=== PATIENT | male | born 1950 | race Caucasian/White ===

== ENCOUNTER 2019-12-15 09:02 | Outpatient (CLI) | payer MEDICARE, OTHER, SELFPAY ==
--- NOTE | 2019-12-15 | US_ITS ---
WS: [id number] Gallbladder ultrasound, 12/15/2019 Clinical Data: ELEVATED ALKALINE PHOSPHATASE LEVEL Comparison: None. Findings: The gallbladder shows no sludge or stone. The wall measures 1.7 mm with no pericholecystic fluid. The common bile duct is 3.2 mm and there are no intrahepatic ductal abnormalities. Liver shows no cysts, masses or dilated intrahepatic ducts. The liver is dense and measures 16.84 x 1 5.55 cm in AP and superior inferior dimension. The pancreas is not obscured by overlying bowel gas and no cyst, pseudocyst, or evidence of pancreati tis is noted. Right kidney measures 5.75 x 5.97 x 10.7 cm and no cyst, masses or hydronephrosis can be seen. The aorta and inferior vena cava show no vascular abnormalities. US/US liver [id number] Impression: 1. Negative gallbladder. 2. Enlarged dense liver.
== END 2019-12-15 09:03 | disposition home or self-care (01) ==
LOC: RADOUTREAD 12:21
PROVIDERS: Family Provider Nurse Practitioner Family; PCP Nurse Practitioner Family; Visit Provider Internal Medicine
DX: R74.8 Abnormal levels of other serum enzymes (principal); R16.0 Hepatomegaly, not elsewhere classified
CPT/HCPCS: 76705

== ENCOUNTER 2019-12-20 10:12 | Outpatient (CLI) | payer MEDICARE, OTHER, SELFPAY ==
--- NOTE | 2019-12-20 | XR_ITS ---
WS: [id number] LUMBAR SPINE TECHNIQUE: 5 views of the lumbar spine CLINICAL INFORMATION: LUMBAR PAIN COMPARISON: December 28, 2015 FINDINGS: Five [id number]-[id number] lumbar vertebral bodies. Prior postoperative changes pedicle screw fixation L3-S 1 with interconnecting rods. Interbody fusion L3-4 L4-L5 and L5-S1. Hardware appears stable. Osteopen ia. No instability on flexion extension. XR/XR lumbar spine min 4V [id number] IMPRESSION: 1. No instability on flexion-extension. 2. Stable appearing pedicle screw fixation with interbody fusion L3-S1.
== END 2019-12-20 10:13 | disposition home or self-care (01) ==
LOC: RADOUTREAD 13:40
PROVIDERS: Family Provider Nurse Practitioner Family; PCP Internal Medicine; Visit Provider Internal Medicine
DX: Z76.89 Persons encountering health services in other specified circumstances (principal)

== ENCOUNTER 2020-01-12 09:28 | Outpatient (CLI) | payer MEDICARE, OTHER, SELFPAY ==
--- NOTE | 2020-01-12 09:34 | NM_ITS ---
WS: [id number] NUCLEAR MEDICINE HIDA SCAN CLINICAL INFORMATION: RUQ ABDOMINAL PAIN TECHNIQUE: Following intravenous administration of 8.0 mCi of technetium 99m mebrofenin, images of th e abdomen were obtained over the course of 60 minutes. Next, gallbladder ejection fraction was determ ined by obtaining preprandial and one-hour postprandial images of the gallbladder following oral tk stion of Ensure. COMPARISON: None. FINDINGS: Normal hepatic uptake at 5 minutes. Normal hepatic excretion. Gallbladder is visualized by 10 to 15 m inutes. No evidence of acute cholecystitis. Common bile duct and small bowel are normally visualized. No evidence of choledocholithiasis. Gallbladder ejection fraction 71% within normal limits. No evidence of chronic cholecystitis. NM/NM hepatobiliary w phar* [id number] IMPRESSION: 1. No evidence of acute or chronic cholecystitis. 2. Gallbladder ejection fraction 71% within normal limits
== END 2020-01-12 09:29 | disposition home or self-care (01) ==
LOC: RAD 09:30
PROVIDERS: Family Provider Internal Medicine; PCP Internal Medicine; Visit Provider Internal Medicine
DX: R10.11 Right upper quadrant pain (principal)
CPT/HCPCS: 78227; A9537

== ENCOUNTER → 2022-05-22 09:56 | Outpatient (BNVA) | payer MEDICARE, OTHER, SELFPAY | PROVIDERS: Family Provider Internal Medicine; Visit Provider Family Medicine Adult Medicine | DX: J30.9 Allergic rhinitis, unspecified (principal); Z86.79 Personal history of other diseases of the circulatory system; Z13.6 Encounter for screening for cardiovascular disorders | CPT/HCPCS: 80053; 85025 ==

== ENCOUNTER 2022-10-02 12:29 | Outpatient (CLI) | payer MEDICARE, OTHER, SELFPAY ==
[2022-10-02 12:51] LABS: Basophils % 0.7 %; Eosinophils # 0.1 10^3/uL (0.0-0.8); Eosinophils % 1.3 %; Hematocrit 44.3 % (42.0-52.0); Hemoglobin 14.6 g/dL (11.7-16.6); Lymphocytes # 1.5 10^3/uL (0.8-4.8); Lymphocytes % 24.5 %; Mean Corpuscular Hemoglobin 31.9 pg (28.0-34.0); Mean Corpuscular Volume 96.9 fl (80-94); Mean Platelet Volume 11.3 fL (7.4-10.4); Monocytes # 0.7 10^3/uL (0.2-0.9); Monocytes % 11.9 %; Neutrophils # 3.69 10^3/uL (1.8-7.7); Neutrophils % 61.3 %; Nucleated Red Blood Cells % 0 %; Platelet Count 166 10^3/cmm (130-400); Red Blood Count 4.57 10^6/uL (4.1-5.3); Red Cell Distribution Width 14.1 % (12.1-15.1)
[2022-10-02 13:19] LABS: Carcinoembryonic Antigen 1.6 ng/mL (0.0-4.7); Prostate Specific Antigen Scr 0.38 ng/mL (0-4); Thyroid Stimulating Hormone 19.39 uIU/mL (0.27-4.20)
[2022-10-02 13:33] LABS: Alanine Aminotransferase 51 U/L (0-41); Albumin Level 3.8 g/dL (3.5-5.2); Alkaline Phosphatase 221 U/L (40-130); Anion Gap 13.1 (5-19); Aspartate Amino Transferase 42 U/L (0-40); Blood Urea Nitrogen 16 mg/dL (8-23); Calcium 8.8 mg/dL (8.5-10.5); Carbon Dioxide 24 mmol/L (22-29); Chloride 101 mmol/L (98-107); Globulin 4.4 g/dL (1.3-4.6); Glucose 110 mg/dL (65-115); Osmolality Calculated 280 mOsm/kg (285-295); Potassium 4.1 mmol/L (3.5-5.1); Sodium 134 mmol/L (136-145); Total Bilirubin 0.5 mg/dL (0.15-1.2); Total Protein 8.2 g/dL (6.6-8.7)
== END 2022-10-02 12:30 | disposition home or self-care (01) ==
PROVIDERS: PCP Family Medicine Adult Medicine; Visit Provider Family Medicine Adult Medicine
DX: Z12.5 Encounter for screening for malignant neoplasm of prostate (principal); R53.83 Other fatigue; Z86.79 Personal history of other diseases of the circulatory system; G89.29 Other chronic pain; R10.10 Upper abdominal pain, unspecified; R10.11 Right upper quadrant pain; R10.12 Left upper quadrant pain
CPT/HCPCS: 36415; 80053; 82378; 84443; 85025; G0103

== ENCOUNTER 2022-10-23 13:46 | Outpatient (CLI) | payer MEDICARE, OTHER, SELFPAY ==
[2022-10-23] MEDS: iohexol 350 mg/mL 500 mL Btl (per mL) PO (14:35)
[2022-10-23] MEDS: iohexol 350 mg/mL 500 mL Btl (per mL) IV (14:36)
--- NOTE | 2022-10-23 15:30 | CTR_ITS ---
PROCEDURE INFORMATION: Exam: CT Chest Without and With Contrast; Diagnostic Exam date and time: 10/23/2022 3:18 PM Age: 72 years old Clinical indication: Abdominal pain; Other: Generalized abodmen pain; Prior surgery; Surgery type: Lumbar; Additional info: Abdominal pain 3 weeks TECHNIQUE: Imaging protocol: Diagnostic computed tomography of the chest without and with contrast. Radiation optimization: All CT scans at this facility use at least one of these dose optimization techniques: automated exposure control; mA and/or kV adjustment per patient size (includes targeted exams where dose is matched to clinical indication); or iterative reconstruction. Contrast material: OMNI 350; Contrast volume: 95 ml; Contrast route: INTRAVENOUS (IV); COMPARISON: CR XR chest 2V* [id number] 12/17/2015 10:14 PM RADIATION DOSE METRICS: Total DLP (mGy-cm): 3376.97 FINDINGS: Lungs: Minimal focal pleural thickening anteriorly left lower lung zone likely longstanding. Pleural surfaces are otherwise unremarkable. Minor atelectatic changes left lingula otherwise lung barr are aerated and clear. Pleural spaces: See Lungs finding. Heart: Heart is not enlarged. No significant coronary artery calcifications detected. No significant pericardial effusion. Mediastinal space: Small amount of oral contrast in the mid esophagus suggesting gastroesophageal reflux. Lymph nodes: Scattered small mediastinal lymph nodes likely benign by size criteria. Superimposed granulomatous calcifications within the mediastinum, longstanding. Mildly enlarged pericardial lymph nodes anterolateral to the heart border measuring up 1.5 cm, nonspecific. Vasculature: Unremarkable. No aortic aneurysm. Bones/joints: Unremarkable. No acute fracture. Soft tissues: Unremarkable. PROCEDURE INFORMATION: Exam: CT Abdomen And Pelvis Without And With Contrast Exam date and time: 10/23/2022 3:18 PM Age: 72 years old Clinical indication: Abdominal pain; Other: Generalized abodmen pain; Prior surgery; Surgery type: Lumbar; Additional info: Abdominal pain 3 weeks TECHNIQUE: Imaging protocol: Computed tomography of the abdomen and pelvis without and with contrast. Radiation optimization: All CT scans at this facility use at least one of these dose optimization techniques: automated exposure control; mA and/or kV adjustment per patient size (includes targeted exams where dose is matched to clinical indication); or iterative reconstruction. Contrast material: OMNI 350; Contrast volume: 95 ml; Contrast route: INTRAVENOUS (IV); COMPARISON: US liver [id number] 05/05/2022 10:38 AM RADIATION DOSE METRICS: Total DLP (mGy-cm): 3376.97 FINDINGS: Lungs: Lung bases are clear. Liver: Liver contour suggestive of mild cirrhosis. Gallbladder and bile ducts: Normal. No calcified stones. No ductal dilation. Pancreas: Unremarkable. Main pancreatic duct is not significantly dilated. Spleen: Spleen is moderately enlarged measuring 15 x 14 cm. Adrenal glands: Normal. No mass. Kidneys and ureters: Normal. No hydronephrosis. Stomach and bowel: There are 2 segmental areas of mild colonic wall thickening and some engorgement of adjacent pericolonic vasculature with preserved pericolonic fat planes involving portion of the right colon and distal descending colon that may be secondary to mild segmental colitis. There are multiple diverticula more distally the sigmoid colon without evidence of acute diverticulitis. Appendix: No evidence of appendicitis. Intraperitoneal space: Unremarkable. No free air. No significant fluid collection. Vasculature: Unremarkable. No abdominal aortic aneurysm. Lymph nodes: Borderline enlarged upper abdominal lymph nodes adjacent to the celiac axis, nonspecific. Urinary bladder: Unremarkable as visualized. Reproductive: Unremarkable as visualized. Bones/joints: Patient has undergone recent spinal instrumentation and fusion L3 through S1 stabilized by posterolateral spinal instrumentation. Hardware is intact. Alignment is maintained. Remaining osseous structures are unremarkable. Soft tissues: Unremarkable. CT/CT chest abd pel wo/w con IMPRESSION: 1. Mildly enlarged pericardial lymph nodes, nonspecific. Please refer to discussion of CT abdomen and pelvis. 2. Findings suggestive of reflux. IMPRESSION: 1. Recent spinal instrumentation. No evidence of hardware failure or complications. 2. Findings suggestive of mild segmental colitis which should be correlated clinically. 3. Sigmoid diverticulosis. No evidence of acute diverticulitis. 4. Liver contour suggestive of mild cirrhosis. 5. Splenomegaly and mild upper abdominal lymphadenopathy which may be due to cirrhosis. However findings are nonspecific and follow-up CT exam of the chest abdomen pelvis in 6 months recommended to document stability.
== END 2022-10-23 13:47 | disposition home or self-care (01) ==
LOC: RAD 13:48
PROVIDERS: PCP Family Medicine Adult Medicine; Visit Provider Family Medicine Adult Medicine
DX: R53.83 Other fatigue (principal); R10.10 Upper abdominal pain, unspecified; G89.29 Other chronic pain; M54.9 Dorsalgia, unspecified
CPT/HCPCS: 71260; 74178; Q9967

== ENCOUNTER → 2022-10-27 10:13 | Outpatient (BNVA) | payer MEDICARE, OTHER, SELFPAY | PROVIDERS: PCP Family Medicine Adult Medicine; Visit Provider Surgery | DX: R10.13 Epigastric pain (principal); Z86.010 Personal history of colon polyps | CPT/HCPCS: 99203 ==

== ENCOUNTER 2022-11-19 07:44 | Day surgery (SDC) | payer MEDICARE, OTHER, SELFPAY ==
[2022-11-18 08:28] VITALS: BMI 29.8
[2022-11-19 08:02] VITALS: BP 151/88; PULSE 67; RESP 18; TEMP 36.2; O2SAT 97
[2022-11-19] MEDS: sodium chloride 0.9% 1,000 ML 30 ML IV (08:08)
--- NOTE | 2022-11-19 09:04 | ANES.PREANE2 ---
Pre-Anesthetic Assessment Height/Weight: Height 1.83 m Weight 99.79 kg Temp Pulse Resp BP Pulse Ox O2 Del Method 97.2 F L 67 18 151/88 97 11/19/22 08:02 11/19/22 08:02 11/19/22 08:02 11/19/22 08:02 11/19/22 08:02 11/19/22 08:02 Operation Date: 11/19/22 09:30 Proposed Procedures p 55875 EGD 80163 Colon R10.13,Z86.010(Not Applicable) - DO walker Jennings Colonoscopy(Not Applicable) - Frank Sanchez DO Familial anesthetic complications: None Was Beta Gracie taken within 24 hours: N/A Was Clonidine taken within 24 hours: N/A Last intake: Intake Last Liquid Date 11/18/22 Last Liquid Time 22:00 Last Solid Date 11/17/22 Last Solid Time 18:00 Social No alcohol and No tobacco Exam alert, oriented x 3, clear to auscultation bilaterally and regular rate & rhythm Airway Mallampati: Class II Dentition: false CV/HEM Hx of HTN, patient denies current HTN GI Gastroesophageal Reflux Disease Metabolic Thyroid Disease Anesthetic Plan ASA status: 2 Anesthesia: MAC Risk of > 500 ml blood loss (7ml/kg in children): No Medications/Allergies Home Medications Medication Instructions Recorded Confirmed Last Taken Type fluticasone propionate 50 1 spray intranasal BID 05/22/22 11/19/22 11/17/22 History mcg/actuation nasal spray,suspension dicyclomine 20 mg tablet 20 mg PO QID PRN abdominal 10/02/22 11/19/22 11/17/22 Rx discomfort #60 tabs levothyroxine 100 mcg tablet 100 mcg PO DAILY low thyroid #30 10/02/22 11/19/22 11/17/22 Rx tabs ondansetron HCl 4 mg tablet 4 mg PO Q8H PRN nausea and 10/02/22 11/19/22 11/17/22 Rx vomiting #20 tabs pantoprazole 40 mg tablet,delayed 40 mg PO DAILY GERD #90 tabs 10/02/22 11/19/22 11/17/22 Rx release Allergies Allergy/AdvReac Type Severity Reaction Status Date / Time No Known Allergies Allergy Verified 11/19/22 08:01 Current Medications Generic Name Dose Route Start Last Admin Trade Name Freq PRN Reason Stop Dose Admin Sodium Chloride 1,000 mls @ 30 mls/hr 11/19/22 08:00 11/19/22 08:08 Sodium Chloride 0.9% IV 11/20/22 07:59 30 mls/hr .Q24H EDWIN Administration PFSH Anesthesia Medical History (Updated 10/27/22 @ 11:08 by Frank Sanchez DO) Abnormal colonoscopy [id number] colonoscopy abnormal and he was repeat in 5 years but has yet to have a follow-up Adult onset hypothyroidism Allergic rhinitis due to allergen Chronic upper abdominal pain Fatigue GERD (gastroesophageal reflux disease) History of colon polyps Hx of hypertensive heart disease Influenza vaccine needed Left-sided back pain Prostate cancer screening Surgical History History of ear surgery History of right knee joint replacement Social History Smoking and tobacco status: never smoked Alcohol intake: never Desire information about alcohol rehabilitation?: No Counseling given: No Desire information about substance/drug rehabilitation?: No Counseling given: No Adopted: No Caregiver/support person: No Lives independently: Yes Household members: spouse and children Marital status: History of recent travel: No Current gender identity: Male Special cathi needs: No Data Anesthesia Cardiac Studies: No Data to Display
--- NOTE | 2022-11-19 09:43 | W.PM.OPSUD ---
Surgery/Procedure H&P Update DATE OF PROCEDURE: November 19, 2022 DATE H&P PERFORMED: 10/27/22 PLANNED PROCEDURE: Operation Date: 11/19/22 09:30 Proposed Procedures p 25551 EGD 44993 Colon R10.13,Z86.010(Not Applicable) - DO walker Jennings Colonoscopy(Not Applicable) - Frank Sanchez DO
[2022-11-19 10:09] VITALS: BP 119/71; PULSE 63; RESP 12; TEMP 36.1; O2SAT 94
--- NOTE | 2022-11-19 10:14 | ANE.PACU2 ---
Inpatient post-anesthesia follow up: Airway intact: Yes Vital signs: Temperature 97 F Pulse Rate 63 Respiratory Rate 12 Blood Pressure 119/71 Pulse Oximetry 94 Oxygen Delivery Me thod Room Air Oxygen Flow Rate Fraction of Inspir ed Oxygen Hydration adequate: Yes Nausea and vomiting: No Pain level: 0 Mental status: Baseline
[2022-11-19 10:18] VITALS: BP 116/64; PULSE 63; RESP 12; O2SAT 94
[2022-11-19 10:30] VITALS: BP 147/98; PULSE 64; RESP 14; O2SAT 98
[2022-11-19 10:41] VITALS: BP 146/89; PULSE 61; RESP 16; O2SAT 98
== END 2022-11-19 11:01 | disposition home or self-care (01) ==
PROVIDERS: PCP Family Medicine Adult Medicine; Visit Provider Surgery
PROC: 0DJD8ZZ Inspection of Lower Intestinal Tract, Via Natural or Artificial Opening Endoscopic (ICD-10-PCS; CPT 45378; 2022-11-19 09:30)
PROC: 0DJ08ZZ Inspection of Upper Intestinal Tract, Via Natural or Artificial Opening Endoscopic (ICD-10-PCS; CPT 43235; 2022-11-19 09:30)
DX: Z12.11 Encounter for screening for malignant neoplasm of colon (principal); Z86.010 Personal history of colon polyps; R13.10 Dysphagia, unspecified; K57.30 Diverticulosis of large intestine without perforation or abscess without bleeding; K64.8 Other hemorrhoids; D12.2 Benign neoplasm of ascending colon; K29.50 Unspecified chronic gastritis without bleeding; B96.81 Helicobacter pylori [H. pylori] as the cause of diseases classified elsewhere; E03.9 Hypothyroidism, unspecified; K21.9 Gastro-esophageal reflux disease without esophagitis; I10 Essential (primary) hypertension
CPT/HCPCS: 43239; 45385; 88305; 88342; J2704; J7030

== ENCOUNTER → 2022-12-03 14:48 | Outpatient (BNVA) | payer MEDICARE, OTHER, SELFPAY | PROVIDERS: PCP Family Medicine Adult Medicine; Visit Provider Surgery | DX: Z09 Encounter for follow-up examination after completed treatment for conditions other than malignant neoplasm (principal) | CPT/HCPCS: 99212 ==

== ENCOUNTER → 2022-12-24 12:18 | Outpatient (BNVA) | payer MEDICARE, OTHER, SELFPAY | PROVIDERS: PCP Family Medicine Adult Medicine; Visit Provider Family Medicine Adult Medicine | DX: K74.60 Unspecified cirrhosis of liver (principal); E03.8 Other specified hypothyroidism | CPT/HCPCS: 80053; 84443 ==

== ENCOUNTER → 2023-02-24 10:43 | Outpatient (BNVA) | payer MEDICARE, OTHER, SELFPAY | PROVIDERS: PCP Family Medicine Adult Medicine; Visit Provider Family Medicine Adult Medicine | DX: E03.8 Other specified hypothyroidism (principal) | CPT/HCPCS: 84443 ==

== ENCOUNTER → 2023-05-26 11:06 | Outpatient (BNVA) | payer MEDICARE, OTHER, SELFPAY | PROVIDERS: PCP Family Medicine Adult Medicine; Visit Provider Family Medicine Adult Medicine | DX: E03.8 Other specified hypothyroidism (principal); R53.83 Other fatigue; Z86.79 Personal history of other diseases of the circulatory system | CPT/HCPCS: 80053; 82746; 84443; 85025 ==

== ENCOUNTER → 2023-06-17 14:03 | Outpatient (BNVA) | payer MEDICARE, OTHER, SELFPAY | PROVIDERS: PCP Family Medicine Adult Medicine; Visit Provider Internal Medicine Cardiovascular Disease | DX: K21.9 Gastro-esophageal reflux disease without esophagitis (principal); R06.02 Shortness of breath; R06.09 Other forms of dyspnea; R10.13 Epigastric pain; E03.8 Other specified hypothyroidism; R63.4 Abnormal weight loss; Z68.28 Body mass index [BMI] 28.0-28.9, adult | CPT/HCPCS: 99204 ==

== ENCOUNTER 2023-06-22 10:23 | Outpatient (CLI) | payer MEDICARE, OTHER, SELFPAY ==
--- NOTE | 2023-06-22 10:41 | CT_ITS ---
WS: [id number] CT CHEST, ABDOMEN AND PELVIS NONCONTRAST. HISTORY: Recommended follow-up CT in 6 months from 10/2022 TECHNIQUE: Contiguous 5 mm axial imaging performed through the chest, abdomen and pelvis without IV c ontrast, oral contrast has been provided. Coronal and sagittal reformats chest. Coronal and sagittal reformats through the abdomen and pelvis. All CT scans at [facility] use at least one of thes e dose optimization techniques: automated exposure control; mA and/or kV adjustment per patient size (includes targeted exams where dose is matched to clinical indication); or iterative reconstruction. CONTRAST: None DLP: 1010.29 mGy.cm COMPARISON: 10/23/[address]: Linear 9 mm nodule at the right apex similar to 10/23/2022. New since 2012. Micronodule at the lingula. No additional masses or nodules. No pneumonia. Heart is mildly enlarged. No pericardial or pleural effusions. No adenopathy in the chest. Mild atherosclerosis aorta. Small amount of contras t in the esophagus from reflux disease. Small hiatal hernia. Abdomen CT: Contour of the liver consistent with cirrhosis. Lobulated liver contour. Without IV contr ast cannot exclude masses. Negative gallbladder. Negative unenhanced pancreas. Spleen is enlarged wit h loss of the normal central concavity. Spleen measures over a length of 13.0 cm. Similar appearance as compared to the prior examination. No adrenal mass. Mild bilateral perinephric stranding with no o bstruction. Mild atherosclerosis aorta with no aneurysm. There is mild diffuse wall thickening of the stomach. The stomach is distended with contrast but the mucosa measures 13 mm. This is a new finding. No small bowel obstruction. No colon obstruction. Moder ate diverticular burden beginning in the descending colon through the sigmoid. No acute diverticuliti s. Small lymph node right pericardiac fat. There are very small shotty lymph nodes near the GE junction through the lesser curvature of the stomach. Small retroperitoneal lymph nodes. Lymph nodes are all l ess than a centimeter although numerous. Some of these lymph nodes do appear to have slightly decreas ed in size. Pelvic CT: No free fluid or adenopathy within the pelvis. Mildly distended urinary bladder. Prior posterior lumbar fusion extending from L3-S1. IMPRESSION: 1. Right apical 9 mm linear nodule similar to 10/23/2022 but new since 2012. Recommend chest CT follo w-up in 6 months. 2. Cirrhotic liver with changes of portal venous hypertension. 3. Enlarged spleen is probably on the basis of portal venous hypertension. 4. Shotty but subcentimeter abdominal lymph nodes. May be on the basis of cirrhosis. No enlarging lym phadenopathy. 5. Moderate diverticulosis in the sigmoid colon without acute diverticulitis. 6. No ascites.
[2023-06-22] MEDS: iohexol 350 mg/mL 500 mL Btl (per mL) PO (11:31)
[2023-06-22 11:44] LABS: Anion Gap 12.6 (5-19); Blood Urea Nitrogen 16 mg/dL (8-23); Calcium 8.5 mg/dL (8.5-10.5); Carbon Dioxide 25 mmol/L (22-29); Chloride 104 mmol/L (98-107); Glucose 109 mg/dL (65-115); NT Pro B Type Natriuretic Pept 358 pg/mL (0-125); Osmolality Calculated 286 mOsm/kg (285-295); Potassium 4.6 mmol/L (3.5-5.1); Sodium 137 mmol/L (136-145)
--- NOTE | 2023-06-22 12:00 | USCV_ITS ---
Gabe Jimenez Age: 72 Gender: M : 1950 Exam Date: 06/22/2023 11:32 Ordering Phys: Mei Melendez MD ([email or web address]) Technologist: JOCELINE [place] [facility] [place]: SHORTNESS OF BREATH BP: 136 / 80 HR: 71 Rhythm: Sinus Technical Quality: Adequate MEASUREMENTS (Male / Female) Normal Values 2D ECHO LVOT Diameter 2.0 cm LV Ejection Fraction MOD 2C 58.0 % LV Ejection Fraction 2C AL 59.1 % LA Diameter 3.0 cm LA Width 3.3 cm LA Height 4.5 cm RA Width 3.4 cm RA Height 5.0 cm Aorta at Sinotubular Diameter 2.3 cm IVC Diameter 1.7 cm M-MODE Aortic Annulus Diameter 3.4 cm LA Ao Ratio MM 0.9 MV E Point Septal Separation 0.6 cm DOPPLER AV Peak Velocity 149.7 cm/s LVOT Peak Velocity 108.0 cm/s AV Area Cont Eq vti 2.1 cm squared AV Area Cont Eq pk 2.2 cm squared MV Peak Velocity 103.0 cm/s MV Area PHT 3.9 cm squared Mitral E to A Ratio 1.5 MV E' Velocity 60.0 cm/s Mitral E to MV E' Ratio 9.8 Mitral E to LV E' Lateral Ratio 9.3 Mitral E to LV E' Septal Ratio 10.4 TR Peak Velocity 290.9 cm/s TR Peak Gradient 33.8 mmHg TR Mean Velocity 217.1 cm/s TR Mean Gradient 20.4 mmHg TR Velocity Time Integral 97.7 cm TV Peak E Velocity 43.0 cm/s Right Atrial Pressure 3.0 mmHg Pulmonary Artery Systolic Pressu 36.8 mmHg PV Peak Velocity 90.0 cm/s RV Acceleration Time 0.1 s RV Ejection Time 0.3 s RV AcT/ET 0.4 FINDINGS Left Ventricle Normal left ventricular size and systolic function, EF 63 %. No regional wall motion abnormalities. Right Ventricle The right ventricle is normal in size and function. Right Atrium The right atrium is normal in size. Left Atrium Mildly increased left atrial size. Mitral Valve Mild mitral annular calcification. Mild mitral valve regurgitation. Aortic Valve Thickened aortic valve. Mild aortic valve regurgitation. Tricuspid Valve Pyng-fi-ihfkymnq tricuspid valve regurgitation. Estimated pulmonary artery peak systolic pressure is 37 mmHg Pulmonic Valve Structurally normal pulmonic valve. Pericardium No pericardial effusion. Aorta Normal aortic annulus size. IVC Normal inferior vena cava. CONCLUSIONS Normal left ventricular size and systolic function, EF 63 %. No regional wall motion abnormalities. Mildly increased left atrial size. Mild mitral annular calcification. Mild mitral valve regurgitation. Thickened aortic valve. Mild aortic valve regurgitation. Qrkv-yv-emeomoee tricuspid valve regurgitation. Estimated pulmonary artery peak systolic pressure is 37 mmHg. There is no pericardial effusion. There are no intracardiac masses. No similar previous studies are available for comparison Dr Mei Melendez MD [facility] (Electronically Signed) Final Date: 22 June 2023 23:22 S
== END 2023-06-22 10:24 | disposition home or self-care (01) ==
PROVIDERS: Absent Provider Internal Medicine Cardiovascular Disease; PCP Family Medicine Adult Medicine; Visit Provider Family Medicine Adult Medicine
DX: R06.02 Shortness of breath (principal); E03.8 Other specified hypothyroidism; K74.60 Unspecified cirrhosis of liver; R06.09 Other forms of dyspnea; I34.0 Nonrheumatic mitral (valve) insufficiency; I35.8 Other nonrheumatic aortic valve disorders; I07.1 Rheumatic tricuspid insufficiency
CPT/HCPCS: 71250; 74176; 80048; 83880; 93306; Q9967

== ENCOUNTER 2023-08-02 08:46 | Outpatient (CLI) | payer MEDICARE, OTHER, SELFPAY ==
--- NOTE | 2023-08-02 08:58 | XRR_ITS ---
PROCEDURE INFORMATION: Exam: XR Lumbosacral Spine Exam date and time: 08/02/2023 9:03 AM Age: 72 years old Clinical indication: Pain and injury or trauma; Fall; Blunt trauma (contusions or hematomas); Low back pain; Injury date: 1 week ago; Prior surgery; Surgery date: 6+ months; Surgery type: L spine; Additional info: Lower back pain TECHNIQUE: Imaging protocol: Radiologic exam of the lumbosacral spine. Views: 2 or 3 views. COMPARISON: CR XR lumbar spine min 4V [id number] 12/20/2019 10:12 AM FINDINGS: Bones/joints: The patient is status post lumbosacral fusion. Bilateral transpedicular screws are seen at L3, L4, L5, and S1. Gross anatomic alignment is maintained. The hardware appears to be intact. There is advanced degenerative disc disease at L5-S1. There is diffuse osteopenia. Soft tissues: Unremarkable. XR/XR lumbar spine 2-3V* [id number] IMPRESSION: No evidence of acute process.
[2023-08-02 10:32] LABS: Anion Gap 9.9 (5-19); Blood Urea Nitrogen 18 mg/dL (8-23); Calcium 8.8 mg/dL (8.5-10.5); Carbon Dioxide 29 mmol/L (22-29); Chloride 101 mmol/L (98-107); Glucose 95 mg/dL (65-115); NT Pro B Type Natriuretic Pept 415 pg/mL (0-125); Osmolality Calculated 284 mOsm/kg (285-295); Potassium 3.9 mmol/L (3.5-5.1); Sodium 136 mmol/L (136-145)
== END 2023-08-02 08:47 | disposition home or self-care (01) ==
PROVIDERS: Internal Medicine Cardiovascular Disease; PCP Family Medicine Adult Medicine; Visit Provider Nurse Practitioner Family
DX: M54.50 Low back pain, unspecified (principal); M54.6 Pain in thoracic spine; R06.09 Other forms of dyspnea; Z86.79 Personal history of other diseases of the circulatory system
CPT/HCPCS: 36415; 72100; 80048; 83880

== ENCOUNTER → 2023-09-24 10:52 | Outpatient (BNVA) | payer MEDICARE, OTHER, SELFPAY | PROVIDERS: PCP Family Medicine Adult Medicine; Visit Provider Family Medicine Adult Medicine | DX: E03.8 Other specified hypothyroidism (principal) | CPT/HCPCS: 84443 ==

== ENCOUNTER 2023-10-07 10:23 | Outpatient (CLI) | payer MEDICARE, OTHER, SELFPAY ==
--- NOTE | 2023-10-07 10:31 | MR_ITS ---
WS: [id number] MRI ABDOMEN WITH AND WITHOUT CONTRAST. COMPARISON: Noncontrast CT 06/22/2023 Multiplanar, multisequence imaging is performed with and without contrast. MultiHance 20 mL IV. Very mild nodularity involving the hepatic surface. The liver is normal size. No significant enlargem ent of the caudate lobe. There are no enhancing masses within the liver. No hepatic steatosis. The po rtal vein is normal. The spleen is enlarged with a maximum AP diameter of 15.6 cm. No pancreatic abno rmality. Pancreatic duct is not dilated. No adrenal mass. Gallbladder is negative. No bile duct dilat ation. No renal obstruction or solid mass. Kidneys enhance normally. No ascites or adenopathy. No pleural effusions. IMPRESSION: 1. Mildly cirrhotic appearing liver. Portal vein is normally enhancing. No hepatoma. 2. Mildly enlarged spleen. 3. No ascites.
[2023-10-07] MEDS: gadobenate dimeglumine 20 mL vial IV (11:34)
== END 2023-10-07 10:24 | disposition home or self-care (01) ==
LOC: RAD 10:24
PROVIDERS: PCP Family Medicine Adult Medicine; Visit Provider Internal Medicine
DX: K74.60 Unspecified cirrhosis of liver (principal); K76.9 Liver disease, unspecified; Z12.89 Encounter for screening for malignant neoplasm of other sites; R16.1 Splenomegaly, not elsewhere classified
CPT/HCPCS: 74183; A9577

== ENCOUNTER → 2023-12-27 10:45 | Outpatient (BNVA) | payer MEDICARE, OTHER, SELFPAY | PROVIDERS: PCP Family Medicine Adult Medicine; Visit Provider Internal Medicine Cardiovascular Disease | DX: R06.09 Other forms of dyspnea (principal); R06.02 Shortness of breath; Z86.79 Personal history of other diseases of the circulatory system; E03.8 Other specified hypothyroidism; K74.5 Biliary cirrhosis, unspecified; M79.89 Other specified soft tissue disorders | CPT/HCPCS: 36415; 80048; 83880; 99214 ==

== ENCOUNTER → 2023-12-29 14:05 | Outpatient (BNVA) | payer MEDICARE, OTHER, SELFPAY | PROVIDERS: PCP Family Medicine Adult Medicine; Visit Provider Family Medicine Adult Medicine | DX: K74.60 Unspecified cirrhosis of liver (principal); R10.9 Unspecified abdominal pain; K74.5 Biliary cirrhosis, unspecified; I10 Essential (primary) hypertension; R63.4 Abnormal weight loss | CPT/HCPCS: 80053; 85025; 85610 ==

== ENCOUNTER 2024-03-03 16:23 | Emergency (ER) | payer MEDICARE, OTHER, SELFPAY ==
[2024-03-03 16:27] VITALS: BP 152/74; PULSE 79; RESP 17; TEMP 36.7; O2SAT 98
--- NOTE | 2024-03-03 17:00 | XRR_ITS ---
PROCEDURE INFORMATION: Exam: XR Complete Acute Abdomen Series Including Chest Exam date and time: 03/03/2024 5:35 PM Age: 73 years old Clinical indication: Abdominal pain; Patient HX: With chest pain TECHNIQUE: Imaging protocol: Radiologic exam. Complete acute abdomen series, including 2 or more views of the abdomen and a single view chest. COMPARISON: MR abdomen wo/w con* [id number] 10/07/2023 11:06 AM FINDINGS: Lungs: No focal consolidation. Pleural spaces: No evidence of pneumothorax. No evidence of effusion. Heart/Mediastinum: Cardiomediastinal silhouette is within normal limits. Gastrointestinal tract: Nonobstructive bowel gas pattern. Moderate stool burden. There are few loops of mildly prominent small bowel, nonspecific. Intraperitoneal space: No gross evidence of pneumoperitoneum or pneumatosis. Bones/joints: No evidence of acute osseous abnormality. Lumbar fusion hardware noted. Soft tissues: Grossly unremarkable. XR/XR acute abdomen series [id number] IMPRESSION: 1. No acute cardiopulmonary abnormality. 2. Nonobstructive bowel gas pattern. 3. Moderate stool burden. There are few loops of mildly prominent small bowel, nonspecific. If there is ongoing clinical concern, consider correlation with CT.
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
[2024-03-03] MEDS: methylPREDNISolone sod succ 125 mg/2 mL INJ IVP (17:38)
[2024-03-03 17:40] VITALS: BP 118/61
[2024-03-03 18:03] VITALS: RESP 18
[2024-03-03 19:31] LABS: Basophils % 0.8 %; Eosinophils # 0.1 10^3/uL (0.0-0.8); Eosinophils % 2.8 %; Hematocrit 39.6 % (37-53); Lymphocytes # 0.9 10^3/uL (0.8-4.8); Lymphocytes % 24.6 %; Mean Corpuscular HGB Conc 33.3 g/dL (30-55); Mean Corpuscular Hemoglobin 32.1 pg (27-33); Mean Corpuscular Volume 96.4 fl (82-101); Mean Platelet Volume 11.8 fL (7.4-10.4); Monocytes # 0.3 10^3/uL (0.2-0.9); Monocytes % 7.4 %; Neutrophils # 2.26 10^3/uL (1.8-7.7); Neutrophils % 64.1 %; Nucleated Red Blood Cells % 0 %; Platelet Count 109 10^3/cmm (157-399); Red Blood Count 4.11 10^6/uL (3.85-5.65); Red Cell Distribution Width 14.8 % (12.1-15.1); White Blood Count 3.53 10^3/uL (3.29-11.43)
[2024-03-03 19:50] LABS: Alanine Aminotransferase 21 U/L (0-41); Albumin Level 3.7 g/dL (3.5-5.2); Alkaline Phosphatase 147 U/L (40-130); Anion Gap 10.1 (5-19); Aspartate Amino Transferase 25 U/L (0-40); Blood Urea Nitrogen 14 mg/dL (8-23); Calcium 8.3 mg/dL (8.5-10.5); Carbon Dioxide 26 mmol/L (22-29); Chloride 104 mmol/L (98-107); Creatinine Clr Calc Pharmacy 93.4908; Globulin 4.4 g/dL (1.3-4.6); Glucose 105 mg/dL (65-115); Osmolality Calculated 283 mOsm/kg (285-295); Potassium 4.1 mmol/L (3.5-5.1); Sodium 136 mmol/L (136-145); Total Bilirubin 0.6 mg/dL (0.15-1.2); Total Protein 8.1 g/dL (6.6-8.7)
[2024-03-03 21:00] VITALS: BP 148/72; PULSE 70; RESP 18; O2SAT 96
== END 2024-03-03 20:50 | disposition home or self-care (01) ==
PROVIDERS: Emergency Provider Emergency Medicine; PCP Family Medicine Adult Medicine
DX: R21 Rash and other nonspecific skin eruption (principal); I10 Essential (primary) hypertension
CPT/HCPCS: 36415; 74022; 80053; 85025; 96374; 99284; J2919

== ENCOUNTER 2024-05-01 00:02 | Emergency (ER) | payer MEDICARE, OTHER, SELFPAY ==
[2024-05-01 00:13] VITALS: BP 163/86; PULSE 79; RESP 17; TEMP 36.6; O2SAT 97; BMI 27.9
[2024-05-01] MEDS: sodium chloride 0.9% 1,000 ML 999 ML IV (01:29)
[2024-05-01 01:31] LABS: Basophils % 0.4 %; Eosinophils # 0.1 10^3/uL (0.0-0.8); Eosinophils % 0.9 %; Hematocrit 39.9 % (37-53); Lymphocytes # 1.4 10^3/uL (0.8-4.8); Lymphocytes % 25.2 %; Mean Corpuscular HGB Conc 33.8 g/dL (30-55); Mean Corpuscular Hemoglobin 32.5 pg (27-33); Mean Corpuscular Volume 95.9 fl (82-101); Mean Platelet Volume 12.2 fL (7.4-10.4); Monocytes # 0.7 10^3/uL (0.2-0.9); Monocytes % 12.4 %; Neutrophils # 3.35 10^3/uL (1.8-7.7); Neutrophils % 61.1 %; Nucleated Red Blood Cells % 0 %; Platelet Count 102 10^3/cmm (157-399); Red Blood Count 4.16 10^6/uL (3.85-5.65); Red Cell Distribution Width 16.3 % (12.1-15.1); White Blood Count 5.48 10^3/uL (3.29-11.43)
--- NOTE | 2024-05-01 01:49 | CTR_ITS ---
PROCEDURE INFORMATION: Exam: CT Abdomen And Pelvis With Contrast Exam date and time: 05/01/2024 2:05 AM Age: 73 years old Clinical indication: Abdominal pain; Localized; Right upper quadrant (ruq); Prior surgery; Surgery date: 6+ months; Surgery type: Lumbar fusion; Patient HX: C/O ruq pain. History of gastritis and cirrhosis. TECHNIQUE: Imaging protocol: Computed tomography of the abdomen and pelvis with contrast. Radiation optimization: All CT scans at this facility use at least one of these dose optimization techniques: automated exposure control; mA and/or kV adjustment per patient size (includes targeted exams where dose is matched to clinical indication); or iterative reconstruction. Contrast material: OMNI 350; Contrast volume: 100 ml; Contrast route: INTRAVENOUS (IV); COMPARISON: MR abdomen wo/w con* [id number] 10/07/2023 11:06 AM RADIATION DOSE METRICS: Total DLP (mGy-cm): 816.8 FINDINGS: Liver: Nodular contour of the liver suggestive of cirrhosis. Gallbladder and biliary ducts: Contracted gallbladder. Pancreas: Question mild peripancreatic stranding. Findings may be seen with acute pancreatitis, correlate with pancreatic enzymes. Spleen: Splenomegaly. Adrenal glands: Normal. No mass. Kidneys and ureters: No hydronephrosis. Stomach and bowel: Colonic diverticulosis without findings of diverticulitis. No dilated bowel loops. No high-grade obstruction. Appendix: The appendix is not identified. There are no focal inflammatory changes in the right lower quadrant. Intraperitoneal space: There is perihepatic ascites. Trace amount free fluid in the pelvis. Vasculature: No abdominal aortic aneurysm. Lymph nodes: No enlarged lymph nodes. Urinary bladder: Unremarkable as visualized. Reproductive: Unremarkable as visualized. Bones/joints: Postsurgical changes noted in the lumbar spine. Soft tissues: Unremarkable. CT/CT abdomen pelvis w con* [id number] IMPRESSION: 1. Question mild peripancreatic stranding. Findings may be seen with acute pancreatitis, correlate with pancreatic enzymes. 2. Cirrhosis. Splenomegaly. Trace perihepatic ascites.
[2024-05-01 01:51] VITALS: RESP 118; O2SAT 98
[2024-05-01] MEDS: lidocaine 2% viscous 15 ML, aluminum-mag hydrox-simethicon 30 ML, sucralfate oral liq 1 GM PO (01:51)
[2024-05-01] MEDS: ondansetron 2 mg/ML SDV 2 mL 4 MG IVP (01:51)
[2024-05-01] MEDS: morphine 4 mg/mL SDV 1 mL IVP ×2 (01:51→03:45)
--- NOTE | 2024-05-01 01:52 | ED_ITS ---
HPI - Abdominal Pain 2 General: Chief Complaint: Abdominal Pain Stated Complaint: lower abd pain Time Seen by Provider: 05/01/24 00:32 History of Present Illness: 73-year-old male with epigastric and rig ht upper quadrant pain for the past 24 hours. He vomited once at home. No fever. He has a history of liver cirrhosis. He has been on the medication for the last month or so, budesonide, as he sees a liver specialist at [facility] in [place]. He feels bloated. He does have a history of diarrhea, but this is chronic with his liver disease. He does still have a gallbladder. Associated Symptoms: Reports diarrhea (Chronic), nausea and vomiting; Denies fever(s) Review of Systems 2 Const: Denies: fever(s) ENMT: Denies: throat pain Card: Denies: chest pain Resp: Denies: dyspnea GI: Reports: abdominal pain, nausea, vomiting and diarrhea (Chronic) : Denies: flank pain or difficulty urinating Musc: Reports: back pain PFSH ED 2 PFSH: Medical History Hypokalemia Hypocalcemia due to chronic kidney disease Lymphedema due to chronic inflammation 03/27/24 [facility] colonoscopy increased intraepithelial lymphocytes and colon polyp Tick bite of multiple sites Stone of salivary gland or duct Abused elder Stress due to family tension Acute sinusitis Hypertension Osteoarthritis involving multiple joints on both sides of body Left shoulder strain Dyspepsia and disorder of function of stomach GI [facility], Dr. Davis, consider rifazimin if not dicyclomine tolerated Dyspnea on exertion Bilateral leg cramps BPH associated with nocturia Cirrhosis of liver Primary biliary Cirrhosis, HCC with pancytopenia and pruritus Angiodysplasia of stomach and duodenum Gastritis He has gastritis on EGD 11/19/[address] Sanchez Internal hemorrhoids Diverticulosis Colon polyps 11/19/[address] Sanchez snare polypectomy specimen obtained multiple 2 to 3 mm sessile polyps seen in descending distal colon, repeat colonoscopy in 5 years Adult onset hypothyroidism Abnormal colonoscopy Dr. Sanchez colonoscopy on 11/19/2022 multiple sessile polyps and diverticular repeat in 5 years Fatigue Allergic rhinitis due to allergen Hx of hypertensive heart disease Surgical History History of right knee joint replacement History of ear surgery Social History Smoking and tobacco/nicotine status: never used tobacco/nicotine Alcohol intake: never Substance/Drug Use: never Adopted: No Caregiver/support person: No Lives independently: Yes Household members: spouse and children Marital status: Do you think of yourself as: Straight/Heterosexual Current gender identity: Male Special cathi needs: No Physical Exam 2 Const: COMMON NORMALS: no acute distress GENERAL APPEARANCE: cooperative; not ill appearing and not frail appearing HENMT: COMMON NORMALS: normocephalic, atraumatic and Normal external nose present HEAD & SCALP: normocephalic and atraumatic FACE & SINUS: normal facial exam and face symmetric NOSE: Normal external nose present Eye: COMMON NORMALS: Equal, round and reactive pupils present and EOMs intact bilaterally SCLERA: sclerae normal PUPIL: Yes Equal, round and reactive pupils present Neck/C-Spine: GENERAL: Yes trachea midline Chest: CHEST: Yes Symmetrical chest wall rise Resp: COMMON NORMALS: normal respiratory effort, No retractions, No use of accessory muscles and clear to auscultation bilaterally AUSCULTATION: clear to auscultation bilaterally Cardio: COMMON NORMALS: regular rate and regular rhythm RATE: regular rate RHYTHM: regular rhythm GI: COMMON NORMALS: Normal to inspection, nondistended, normoactive bowel sounds present and Soft to palpation PALPATION: Yes Soft to palpation and Yes Tenderness to palpation present (GI) (Epigastric) Extremity: GENERAL: Yes edema (1+) Neuro: FAISAL COMA SCALE: document GCS findings [place] coma scale eye opening: Spontaneous [place] coma scale verbal response: Orientated [place] coma scale motor response: Obey commands Faisal coma scale total score: 15 S ENSORY EXAM: Yes extremities (intact) Psych: COMMON NORMALS: speech normal SPEECH: Yes normal speech Skin: COMMON NORMALS: no rashes or lesions noted GENERAL SKIN EXAM: no rashes or lesions noted Course 2 Vital Signs: Vital signs: Vital Signs Temperature 98 F 05/01/24 00:13 Pulse Rate 65 05/01/24 02:48 Respiratory Rate 18 05/01/24 03:45 Blood Pressure 154/89 05/01/24 02:48 Pulse Oximetry 95 05/01/24 02:48 Oxygen Delivery Me thod Room Air 05/01/24 02:48 MDM - Abdominal Pain Medical Decision Making No further episodes of vomiting here. Vitals are stable. He is afebrile. His platelet count is 102 which is stable for him. Other CBC indices are normal. BMP is normal. No elevation in liver enzymes. His lipase is 60, upper limits of normal. CT scan shows mild peripancreatic stranding. Correlation with pancreatic enzymes and tenderness is suggested. There is mild cirrhotic changes as well with trace ascites. No evidence of biliary obstruction. Counseled patient on diagnosis. Will treat as an outpatient for pancreatitis with clear liquids, pain control, antiemetics, etc. He knows to return for worsening symptoms. Close outpatient follow-up. He will call his liver doctor in [place] later this morning to see if the new medication he is on may be playing a role in his mild pancreatitis. Lab Data 05/01/24 01:20 05/01/24 01:40 Labs/Radiology: Radiology Impressions Abdomen/Pelvis CT 05/01/24 01:49 IMPRESSION: 1. Question mild peripancreatic stranding. Findings may be seen with acute pancreatitis, correlate with pancreatic enzymes. 2. Cirrhosis. Splenomegaly. Trace perihepatic ascites. Laboratory Results WBC 5.48 10^3/uL (3.29-11.43) 05/01/24 01:20 RBC 4.16 10^6/uL (3.85-5.65) 05/01/24 01:20 Hgb 13.50 g/dL (11.27-16.99) 05/01/24 01:20 Hct 39.9 % (37-53) 05/01/24 01:20 MCV 95.9 fl (82-101) 05/01/24 01:20 MCH 32.5 pg (27-33) 05/01/24 01:20 MCHC 33.8 g/dL (30-55) 05/01/24 01:20 RDW 16.3 % (12.1-15.1) H 05/01/24 01:20 Plt Count 102 10^3/cmm (157-399) L 05/01/24 01:20 MPV 12.2 fL (7.4-10.4) H 05/01/24 01:20 Neut % (Auto) 61.1 % 05/01/24 01:20 Lymph % (Auto) 25.2 % 05/01/24 01:20 [place] % (Auto) 12.4 % 05/01/24 01:20 Eos % (Auto) 0.9 % 05/01/24 01:20 Baso % (Auto) 0.4 % 05/01/24 01:20 Neut # (Auto) 3.35 10^3/uL (1.8-7.7) 05/01/24 01:20 Lymph # (Auto) 1.4 10^3/uL (0.8-4.8) 05/01/24 01:20 [place] # (Auto) 0.7 10^3/uL (0.2-0.9) 05/01/24 01:20 Eos # (Auto) 0.1 10^3/uL (0.0-0.8) 05/01/24 01:20 Baso # (Auto) 0.0 10^3/uL (0.0-0.1) 05/01/24 01:20 Nucleated RBC % (auto) 0 % 05/01/24 01:20 Nucleated RBCs # 0.0 /100WBC 05/01/24 01:20 Sodium 138 mmol/L (136-145) 05/01/24 01:40 Potassium 3.8 mmol/L (3.5-5.1) 05/01/24 01:40 Chloride 106 mmol/L (98-107) 05/01/24 01:40 Carbon Dioxide 23 mmol/L (22-29) 05/01/24 01:40 Anion Gap 12.8 (5-19) 05/01/24 01:40 BUN 21 mg/dL (8-23) 05/01/24 01:40 Creatinine 0.6 mg/dL (0.7-1.2) L 05/01/24 01:40 GFR Calculation Not Reportable 05/01/24 01:40 Glucose 102 mg/dL (65-115) 05/01/24 01:40 Calculated Osmolality 289 mOsm/kg (285-295) 05/01/24 01:40 Lactic Acid Cancelled 05/01/24 01:20 Lactate 0.7 mmol/L (0.5-2.2) 05/01/24 01:40 Calcium 8.3 mg/dL (8.5-10.5) L 05/01/24 01:40 Total Bilirubin 0.6 mg/dL (0.15-1.2) 05/01/24 01:40 AST 21 U/L (0-40) 05/01/24 01:40 ALT 27 U/L (0-41) 05/01/24 01:40 Alkaline Phosphatase 112 U/L (40-130) 05/01/24 01:40 C-Reactive Protein 3.0 mg/L (0.0-4.9) 05/01/24 01:40 Total Protein 6.6 g/dL (6.6-8.7) 05/01/24 01:40 Albumin 3.3 g/dL (3.5-5.2) L 05/01/24 01:40 Globulin 3.3 g/dL (1.3-4.6) 05/01/24 01:40 Lipase 60 U/L (13-60) 05/01/24 01:40 Urine Color Yellow (Yellow) 05/01/24 01:20 Urine Appearance Clear (CLEAR) 05/01/24 01:20 Urine pH 7 (5-7) 05/01/24 01:20 Ur Specific [place] 1.015 (1.005-1.030) 05/01/24 01:20 Urine Protein Neg (Negative) 05/01/24 01:20 Urine Glucose (UA) Norm (Normal) 05/01/24 01:20 Urine Ketones 1+ (Negative) H 05/01/24 01:20 Urine Blood Neg (Negative) 05/01/24 01:20 Urine Nitrate Negative (Negative) 05/01/24 01:20 Urine Bilirubin Neg (Negative) 05/01/24 01:20 Urine Urobilinogen Neg mg/dL (Negative) 05/01/24 01:20 Ur Leukocyte Esterase Negative (Negative) 05/01/24 01:20 All radiology interpretation(s) finalized by discharge Discharge Plan Discharge Patient Disposition: Home Clinical Impression: Pancreatitis Condition: Stable Prescriptions: New Percocet 7.5-325 mg tablet 1 tab PO Q6H PRN (Reason: pain) Qty: 10 0RF ondansetron 4 mg tablet,disintegrating 4 mg PO Q6H PRN (Reason: nausea and vomiting) Qty: 14 0RF Discontinued tramadol 50 mg tablet 50 mg PO Q6H PRN (Reason: Pain) No Action fluticasone propionate 50 mcg/actuation spray,suspension 1 spray intranasal BID Rx Instructions: administer into each nostril colestipol 1 gram tablet 1 g PO BID carvedilol 6.25 mg tablet 6.25 mg PO BID Rx Instructions: must administer with a meal/food loratadine [Claritin] 10 mg tablet 10 mg PO DAILY PRN (Reason: ALLERGIES) doxycycline hyclate 100 mg capsule 100 mg PO BID Qty: 14 0RF potassium chloride 8 mEq tablet extended release 8 meq PO DAILY Qty: 90 3RF ursodiol 250 mg tablet 250 mg PO TID Qty: 150 0RF Rx Instructions: 2 in a.m., 1 at noon, and 2 in p.m. with meals levothyroxine 200 mcg tablet 200 mcg PO DAILY Qty: 30 5RF Lasix 20 mg tablet 20 mg PO DAILY PRN (Reason: Edema) Discharge Orders: Discharge ED (Routine); Ordered 05/01/24 Ordered By: Aaron Tracy Referrals: Brayden Mcdonald MD [Primary Care Provider] - 1-3 days Discharge Diet: Advance as tolerated and Clear Liquid Patient Instructions: Pancreatitis (ED), Opioid Safety, Pain Management Activity Restrictions/Additional Instructions: Follow a liquid diet for the next 48 hours, then you may advance as tolerated provided no significant abdominal tenderness vomiting fever etc. Take pain medication for significant pain. Take nausea medication scheduled every 6 hours while awake for the next 24 hours, then as needed. Call your doctor later today, and ask if your new medication can cause pancreatitis or worsen your symptoms. Take stool softeners with pain medication to prevent constipation. These can be purchased [id number]. Return to the emergency department for worsening pain despite treatment, vomiting liquids or medications despite treatment, fever greater than 100, mental status changes, other concerning symptoms. Coding Level of Care Code ED Shop Tech for Nazanin Shanks
[2024-05-01 02:00] LABS: Lactate (Lactic Acid level) 0.7 mmol/L (0.5-2.2)
[2024-05-01 02:01] LABS: Alanine Aminotransferase 27 U/L (0-41); Albumin Level 3.3 g/dL (3.5-5.2); Alkaline Phosphatase 112 U/L (40-130); Anion Gap 12.8 (5-19); Aspartate Amino Transferase 21 U/L (0-40); Blood Urea Nitrogen 21 mg/dL (8-23); Calcium 8.3 mg/dL (8.5-10.5); Carbon Dioxide 23 mmol/L (22-29); Chloride 106 mmol/L (98-107); Creatinine Clr Calc Pharmacy 94.7194; Globulin 3.3 g/dL (1.3-4.6); Glucose 102 mg/dL (65-115); Lipase 60 U/L (13-60); Osmolality Calculated 289 mOsm/kg (285-295); Potassium 3.8 mmol/L (3.5-5.1); Sodium 138 mmol/L (136-145); Total Bilirubin 0.6 mg/dL (0.15-1.2); Total Protein 6.6 g/dL (6.6-8.7)
[2024-05-01 02:04] LABS: Add Urine Microscopic? NO; Charge for UA Resulting for Rev
[2024-05-01] MEDS: iohexol 350 mg/mL 500 mL Btl (per mL) IV (02:07)
[2024-05-01 02:09] LABS: Bilirubin Urine Neg (Negative); Blood Urine Neg (Negative); Glucose Urine UA Norm (Normal); Ketones Urine 1+ (Negative); Leukocyte Esterase Urine Negative (Negative); Nitrate Urine Negative (Negative); Protein Urine Neg (Negative); Specific Gravity, Urine 1.015 (1.005-1.030); Urine Appearance Clear (CLEAR); Urine Color Yellow (Yellow); Urobilinogen Urine Neg (Negative); pH Urine 7 (5-7)
[2024-05-01 02:48] VITALS: BP 154/89; PULSE 65; RESP 20; O2SAT 95
[2024-05-01 03:45] VITALS: RESP 18
[2024-05-01 04:30] VITALS: BP 142/77; PULSE 63; RESP 18; O2SAT 98
[2024-05-01 05:24] VITALS: BP 169/96; PULSE 62; RESP 18; O2SAT 98
== END 2024-05-01 05:26 | disposition home or self-care (01) ==
PROVIDERS: Emergency Provider Emergency Medicine; PCP Family Medicine Adult Medicine
DX: K85.90 Acute pancreatitis without necrosis or infection, unspecified (principal); I10 Essential (primary) hypertension
CPT/HCPCS: 36415; 74177; 80053; 81003; 83605; 83690; 85025; 86140; 96374; 96375; 96376; 99285; J2270; J2405; J7030; Q9967

== ENCOUNTER 2024-05-03 13:06 | Emergency (ER) | payer MEDICARE, OTHER, SELFPAY ==
[2024-05-03] VITALS (8 sets, daily range): BP systolic 139–151; BP diastolic 74–89; PULSE 59–72; RESP 16; TEMP 36.4; O2SAT 94–98
--- NOTE | 2024-05-03 15:17 | USR_ITS ---
PROCEDURE INFORMATION: Exam: US Abdomen, Limited; Right Upper Quadrant Exam date and time: 05/03/2024 3:43 PM Age: 73 years old Clinical indication: Abdominal pain; Localized; Right upper quadrant (ruq); Additional info: Right upper quad pain TECHNIQUE: Imaging protocol: Real time ultrasound of the abdomen with image documentation. Limited exam focused on the right upper quadrant. COMPARISON: CT abdomen pelvis w con* [id number] 05/01/2024 2:05 AM FINDINGS: Liver: Visualized hepatic parenchyma is heterogeneous and nodular. Gallbladder: No evidence of cholelithiasis. No significant wall thickening or edema to suggest cholecystitis.The logging assistant reports a negative sonographic Lopez's sign. Biliary ducts: The CBD is nondilated, measuring 3 mm. No sonographic evidence of intraductal stone. Pancreas: The pancreas is mostly obscured bowel gas. Visualized portions are grossly unremarkable. Right kidney: The right kidney is normal in echotexture and measures 11.4 cm in length. No evidence of hydronephrosis. US/US gall bladder [id number] IMPRESSION: 1. No cholelithiasis or sonographic evidence of acute cholecystitis. 2. Hepatic cirrhosis.
--- NOTE | 2024-05-03 15:20 | W.ED.ABDPA2 ---
HPI - Abdominal Pain General: Chief Complaint: Abdominal Pain Stated Complaint: stomach pain Time Seen by Provider: 05/03/24 15:04 Source: patient and family Mode of arrival: ambulatory Limitations: no limitations History of Present Illness: This patient returns to the emergency department because of persistent right upper quadrant abdominal pain. He states the symptoms began approximately a week or so ago. He was previously seen in this emergency department had a CAT scan at that time which suggested some stranding around the pancreas. He has a history of nonhepatic cirrhos He is followed by the saddle stitching machine operator at [facility] in [place]. He states that his current symptoms are exacerbated by eating or drinking anything and he has retching after the pain reaches its maximum and then eases off to a dull ache within an hour or so after its maximal intensity. He denies any vomiting blood. He denies any blood in his stools or black tarry stools or chalky white stools. He does not drink alcohol. He does not take any blood thinners. He denies any concomitant chest pain or change in his usual shortness of breath etc. MD elicited complaint: abdominal pain Location: RUQ Severity: moderate Quality: cramping and sharp Radiation: none Migration to: no migration Exacerbating factors: eating Associated Symptoms: Denies chills, dysuria, fever(s) and syncope Review of Systems Const: Denies: fever(s) or chills ENMT: Denies: throat pain, odynophagia, nasal discharge or nasal congestion Card: Denies: chest pain, syncope or pre-syncope Resp: Denies: dyspnea, productive cough or non-productive cough : Denies: flank pain, difficulty urinating, dysuria or urinary frequency Musc: Denies: neck pain, back pain or extremity pain Skin/Breast: Denies: rash or pruritus Neuro: Denies: headache(s), numbness in extremities or weakness in extremities Endo: Denies: polyuria or polydipsia PFSH ED PFSH: Medical History Hypokalemia Hypocalcemia due to chronic kidney disease Lymphedema due to chronic inflammation 03/27/24 [facility] colonoscopy increased intraepithelial lymphocytes and colon polyp Tick bite of multiple sites Stone of salivary gland or duct Abused elder Stress due to family tension Acute sinusitis Hypertension Osteoarthritis involving multiple joints on both sides of body Left shoulder strain Dyspepsia and disorder of function of stomach GI [facility], Dr. Davis, consider rifazimin if not dicyclomine tolerated Dyspnea on exertion Bilateral leg cramps BPH associated with nocturia Cirrhosis of liver Primary biliary Cirrhosis, HCC with pancytopenia and pruritus Angiodysplasia of stomach and duodenum Gastritis He has gastritis on EGD 11/19/[address] Sanchez Internal hemorrhoids Diverticulosis Colon polyps 11/19/[address] Sanchez snare polypectomy specimen obtained multiple 2 to 3 mm sessile polyps seen in descending distal colon, repeat colonoscopy in 5 years Adult onset hypothyroidism Abnormal colonoscopy Dr. Sanchez colonoscopy on 11/19/2022 multiple sessile polyps and diverticular repeat in 5 years Fatigue Allergic rhinitis due to allergen Hx of hypertensive heart disease Surgical History History of right knee joint replacement History of ear surgery Social History Smoking and tobacco/nicotine status: never used tobacco/nicotine Alcohol intake: never Substance/Drug Use: never Adopted: No Caregiver/support person: No Lives independently: Yes Household members: spouse and children Marital status: Do you think of yourself as: Straight/Heterosexual Current gender identity: Male Special cathi needs: No Physical Exam Narrative: EXAM NARRATIVE: Patient makes good eye contact he is alert appears to be fairly comfortable and is cooperative. Speech is goal-directed. Const: COMMON NORMALS: no acute distress, average body habitus, patient oriented x3 and alert GENERAL APPEARANCE: cooperative HENMT: COMMON NORMALS: normocephalic, Normal nasal mucous membranes and turbinates present and moist oral mucous membranes HEAD & SCALP: normocephalic NOSE: Normal nasal mucous membranes and turbinates present Eye: COMMON NORMALS: Equal, round and reactive pupils present, conjunctivae normal and no scleral icterus CONJUNCTIVA: Yes conjunctivae normal PUPIL: Yes Equal, round and reactive pupils present Neck/C-Spine: COMMON NORMALS: full ROM, no lymphadenopathy and no JVD Chest: COMMONS NORMALS: normal inspection of the chest and normal palpation of entire chest wall Resp: COMMON NORMALS: normal respiratory effort, No retractions, No use of accessory muscles and clear to auscultation bilaterally EFFORT & INSPECTION: Yes able to speak in complete sentences AUSCULTATION: clear to auscultation bilaterally Cardio: COMMON NORMALS: no JVD, regular rate, regular rhythm, No murmurs present (Cardio) and Peripheral pulses 2+ throughout RATE: regular rate RHYTHM: regular rhythm PERIPHERAL PULSES: Peripheral pulses 2+ throughout GI: COMMON NORMALS: Normal to inspection, nondistended, normoactive bowel sounds present and no masses PALPATION: Yes Tenderness to palpation present (GI) Details: RUQ : COMMON NORMALS: Yes no CVA tenderness BLADDER/KIDNEY EXAM: Yes no CVA tenderness Back/Pelvis: COMMON NORMALS: no CVA tenderness, thoracic and lumbar spine normal to inspection, no thoracic nor lumbar tenderness, thoraco-lumbar ROM normal and straight leg raise negative bilaterally Extremity: COMMON NORMALS: normal to inspection, full ROM, capillary refill normal and no calf tenderness Neuro: COMMON NORMALS: patient oriented x3, moves all extremities and no focal motor deficits SENSORIUM/ORIENTATION: Yes alert CRANIAL NERVES: Yes CN normal except as noted Psych: COMMON NORMALS: mental status grossly normal Skin: COMMON NORMALS: no rashes or lesions noted and turgor normal GENERAL SKIN EXAM: no rashes or lesions noted and turgor normal Course Reevaluation(s): Reevaluation #1: Patient remains clinically stable and controlled symptoms. Reviewed current findings with both he and spouse. No evidence of biliary tract abnormalities by ultrasound this evening. Has cirrhotic changes as previously noted. Will continue symptomatic treatment. Will go and place him on H2 con twice daily, pancreatic enzymes as his pancreas may be any potential etiology of his pain as well. He has a saddle stitching machine operator in [facility] who they are going to follow-up with in the next 24 hours. Discussed return precautions as well. Time: 18:55 Vital Signs: Vital signs: Vital Signs Temperature 97.5 F L 05/03/24 13:10 Pulse Rate 68 05/03/24 18:10 Respiratory Rate 16 05/03/24 16:04 Blood Pressure 139/81 05/03/24 18:10 Pulse Oximetry 98 05/03/24 18:10 Oxygen Delivery Me thod Room Air 05/03/24 18:10 MDM - Abdominal Pain Medical Decision Making This patient returns to the emergency department with colicky right upper quadrant pain. Previously seen in the emergency department had a CT scan which suggested possible mild pancreatic inflammation as well as his chronic nonalcoholic cirrhosis changes. He had no fevers or chills. He does get food induced pain with associated emesis. Clinical exam was unrevealing. Additional labs and imaging was obtained to more evaluate his biliary tract. Ultrasound was reassuring with no evidence of gallbladder disease, bile duct enlargement with stone etc. Previous CT scan done earlier in the emergency department this past week showed no evidence of vascular abnormalities making that unlikely as an etiology to his symptoms. Certainly possible pancreatic inflammation may be a cause even though he has normal lipase. It also may be gastritis component as well. Will go ahead and place him on H2 con as well as symptom control and pancreatic enzymes with return precautions discussed in detail with both patient and spouse who were appreciative of care. Medical Records I reviewed the patient's medical records. CT scan noted pancreatic changes no vascular abnormality such as aortic aneurysm etc. Lab Data I reviewed the patient's lab results. 05/03/24 15:21 05/03/24 15:21 Labs/Radiology: Radiology Impressions Gallbladder Ultrasound 05/03/24 15:17 IMPRESSION: 1. No cholelithiasis or sonographic evidence of acute cholecystitis. 2. Hepatic cirrhosis. Laboratory Results WBC 5.37 10^3/uL (3.29-11.43) 05/03/24 15:21 RBC 4.66 10^6/uL (3.85-5.65) 05/03/24 15:21 Hgb 15.10 g/dL (11.27-16.99) 05/03/24 15:21 Hct 45.2 % (37-53) 05/03/24 15:21 MCV 97.0 fl (82-101) 05/03/24 15:21 MCH 32.4 pg (27-33) 05/03/24 15:21 MCHC 33.4 g/dL (30-55) 05/03/24 15:21 RDW 15.6 % (12.1-15.1) H 05/03/24 15:21 Plt Count 114 10^3/cmm (157-399) L 05/03/24 15:21 MPV 11.2 fL (7.4-10.4) H 05/03/24 15:21 Neut % (Auto) 56.5 % 05/03/24 15:21 Lymph % (Auto) 29.2 % 05/03/24 15:21 [place] % (Auto) 12.8 % 05/03/24 15:21 Eos % (Auto) 0.9 % 05/03/24 15:21 Baso % (Auto) 0.4 % 05/03/24 15:21 Neut # (Auto) 3.03 10^3/uL (1.8-7.7) 05/03/24 15:21 Lymph # (Auto) 1.6 10^3/uL (0.8-4.8) 05/03/24 15:21 [place] # (Auto) 0.7 10^3/uL (0.2-0.9) 05/03/24 15:21 Eos # (Auto) 0.1 10^3/uL (0.0-0.8) 05/03/24 15:21 Baso # (Auto) 0.0 10^3/uL (0.0-0.1) 05/03/24 15:21 Nucleated RBC % (auto) 0 % 05/03/24 15:21 Nucleated RBCs # 0.0 /100WBC 05/03/24 15:21 Sodium 136 mmol/L (136-145) 05/03/24 15:21 Potassium 4.2 mmol/L (3.5-5.1) 05/03/24 15:21 Chloride 100 mmol/L (98-107) 05/03/24 15:21 Carbon Dioxide 27 mmol/L (22-29) 05/03/24 15:21 Anion Gap 13.2 (5-19) 05/03/24 15:21 BUN 14 mg/dL (8-23) 05/03/24 15:21 Creatinine 0.8 mg/dL (0.7-1.2) 05/03/24 15:21 GFR Calculation Not Reportable 05/03/24 15:21 Glucose 98 mg/dL (65-115) 05/03/24 15:21 Calculated Osmolality 282 mOsm/kg (285-295) L 05/03/24 15:21 Calcium 8.8 mg/dL (8.5-10.5) 05/03/24 15:21 Total Bilirubin 0.7 mg/dL (0.15-1.2) 05/03/24 15:21 AST 34 U/L (0-40) 05/03/24 15:21 ALT 31 U/L (0-41) 05/03/24 15:21 Alkaline Phosphatase 132 U/L (40-130) H 05/03/24 15:21 Total Protein 8.3 g/dL (6.6-8.7) 05/03/24 15:21 Albumin 3.9 g/dL (3.5-5.2) 05/03/24 15:21 Globulin 4.4 g/dL (1.3-4.6) 05/03/24 15:21 Lipase 49 U/L (13-60) 05/03/24 15:21 All radiology interpretation(s) finalized by discharge Discharge Plan Discharge Patient Disposition: Home Clinical Impression: Epigastric pain Pancreatitis Qualifiers: Acute pancreatitis complication: unspecified Condition: Stable Prescriptions: New oxycodone-acetaminophen 5-325 mg tablet 1 tab PO BID PRN (Reason: pain) Qty: 14 0RF famotidine [Pepcid] 40 mg tablet 40 mg PO BID 14 Days Qty: 28 0RF Creon 6,000-19,000 -30,000 unit capsule,delayed release(DR/EC) 3.8745 cap PO BID Qty: 30 1RF Rx Instructions: do not exceed 10,000 unit/kg lipase per 24 hrs No Action fluticasone propionate 50 mcg/actuation spray,suspension 1 spray intranasal BID Rx Instructions: administer into each nostril colestipol 1 gram tablet 1 g PO BID carvedilol 6.25 mg tablet 6.25 mg PO BID Rx Instructions: must administer with a meal/food loratadine [Claritin] 10 mg tablet 10 mg PO DAILY PRN (Reason: ALLERGIES) doxycycline hyclate 100 mg capsule 100 mg PO BID Qty: 14 0RF potassium chloride 8 mEq tablet extended release 8 meq PO DAILY Qty: 90 3RF ursodiol 250 mg tablet 250 mg PO TID Qty: 150 0RF Rx Instructions: 2 in a.m., 1 at noon, and 2 in p.m. with meals levothyroxine 200 mcg tablet 200 mcg PO DAILY Qty: 30 5RF Lasix 20 mg tablet 20 mg PO DAILY PRN (Reason: Edema) Percocet 7.5-325 mg tablet 1 tab PO Q6H PRN (Reason: pain) Qty: 10 0RF ondansetron 4 mg tablet,disintegrating 4 mg PO Q6H PRN (Reason: nausea and vomiting) Qty: 14 0RF Discharge Orders: Discharge ED (Routine); Ordered 05/03/24 Ordered By: Abundio Gomez Referrals: Brayden Mcdonald MD [Primary Care Provider] - Discharge Diet: Low Fat Discharge Activity: Increase activity as tolerated Patient Instructions: Abdominal Pain (ED), Opioid Safety, Pain Management Activity Restrictions/Additional Instructions: As we discussed during your evaluation today did not have any evidence of gallbladder disease. We think that your pain is likely due to inflammation of your pancreas but certainly could also be due to inflammation of your stomach lining. We have prescribed some medicines to help your symptoms. It is important that you follow-up with your GI and liver doctor in [place] in the next few days. If you have any change or new or worsening symptoms you are welcome to return to the emergency department at any time. Coding Level of Care Code ED Radiology Receptionist for Nazanin Shanks
--- NOTE | 2024-05-03 15:25 | ECG_ITS ---
[facility] Test Date: 2024-05-03 Pat Name: Gabe Jimenez Department: Room: Gender: Male Facility Manager: : 1950 Requested By: Abundio Gomez Order Number: [id number] Abraham MD: Mei Melendez M.D. Measurements Intervals [place] Rate: 59 P: 56 MI: 192 QRS: 29 QRSD: 85 T: 50 QT: 438 QTc: 435 Interpretive Statements SINUS BRADYCARDIA Compared to ECG 12/17/2015 21:20:14 Sinus rhythm no longer present Electronically Signed On 05-04-2024 0:08:56 CDT by Mei Melendez M.D. [id number]
[2024-05-03 15:37] LABS: Basophils % 0.4 %; Eosinophils # 0.1 10^3/uL (0.0-0.8); Eosinophils % 0.9 %; Hematocrit 45.2 % (37-53); Lymphocytes # 1.6 10^3/uL (0.8-4.8); Lymphocytes % 29.2 %; Mean Corpuscular HGB Conc 33.4 g/dL (30-55); Mean Corpuscular Hemoglobin 32.4 pg (27-33); Mean Platelet Volume 11.2 fL (7.4-10.4); Monocytes # 0.7 10^3/uL (0.2-0.9); Monocytes % 12.8 %; Neutrophils # 3.03 10^3/uL (1.8-7.7); Neutrophils % 56.5 %; Nucleated Red Blood Cells % 0 %; Platelet Count 114 10^3/cmm (157-399); Red Blood Count 4.66 10^6/uL (3.85-5.65); Red Cell Distribution Width 15.6 % (12.1-15.1); White Blood Count 5.37 10^3/uL (3.29-11.43)
[2024-05-03 15:57] LABS: Alanine Aminotransferase 31 U/L (0-41); Albumin Level 3.9 g/dL (3.5-5.2); Alkaline Phosphatase 132 U/L (40-130); Anion Gap 13.2 (5-19); Aspartate Amino Transferase 34 U/L (0-40); Blood Urea Nitrogen 14 mg/dL (8-23); Calcium 8.8 mg/dL (8.5-10.5); Carbon Dioxide 27 mmol/L (22-29); Chloride 100 mmol/L (98-107); Creatinine Clr Calc Pharmacy 94.5145; Globulin 4.4 g/dL (1.3-4.6); Glucose 98 mg/dL (65-115); Lipase 49 U/L (13-60); Osmolality Calculated 282 mOsm/kg (285-295); Potassium 4.2 mmol/L (3.5-5.1); Sodium 136 mmol/L (136-145); Total Bilirubin 0.7 mg/dL (0.15-1.2); Total Protein 8.3 g/dL (6.6-8.7)
[2024-05-03] MEDS: ondansetron 2 mg/ML SDV 2 mL 4 MG IVP (16:04)
[2024-05-03] MEDS: morphine 4 mg/mL SDV 1 mL IVP (16:04)
== END 2024-05-03 19:30 | disposition home or self-care (01) ==
PROVIDERS: Emergency Provider Emergency Medicine; PCP Family Medicine Adult Medicine
DX: R10.13 Epigastric pain (principal); K85.90 Acute pancreatitis without necrosis or infection, unspecified; I10 Essential (primary) hypertension
CPT/HCPCS: 76705; 80053; 83690; 85025; 93005; 96374; 96375; 99285; J2270; J2405

== ENCOUNTER 2024-06-28 11:12 | Outpatient (CLI) | payer MEDICARE, OTHER, SELFPAY ==
--- NOTE | 2024-06-28 11:18 | MRR_ITS ---
PROCEDURE INFORMATION: Exam: MR Abdomen Without Contrast Exam date and time: 06/28/2024 12:18 PM Age: 73 years old Clinical indication: Pain and condition or disease; Liver condition; Cirrhosis; Abdominal pain; Generalized; Prior surgery; Surgery date: 6+ months; Surgery type: Lumbar; Additional info: Primary biliary cirrhosis/abdominal pain TECHNIQUE: Imaging protocol: Magnetic resonance imaging of the abdomen without contrast. COMPARISON: CT abdomen pelvis w con* [id number] 05/01/2024 2:05 AM FINDINGS: Liver: The liver has a nodular surface and there is relative hypertrophy of the left and caudate lobe consistent with cirrhosis. No liver mass. There is slight signal dropout in the liver parenchyma on opposed phase images which is below the threshold to confirm steatosis. There is no pathologic enhancement of the liver parenchyma. Gallbladder and biliary ducts: The gallbladder is normal. There is no biliary dilation. Common bile duct measures 4-5 mm diameter. Pancreas: The pancreas is unremarkable. No pancreatic duct dilation. Spleen: The spleen is moderately enlarged. Spleen measures 16 cm maximal dimension. Adrenal glands: The adrenal glands are unremarkable. Kidneys and ureters: The kidneys are unremarkable. No hydronephrosis or stones. No ureteral dilation. Stomach and bowel: The stomach is nondistended, limiting assessment of wall thickness. Visible portions of the small bowel and colon are unremarkable. Intraperitoneal space: No ascites. Vasculature: The portal, splenic and superior mesenteric veins are patent. The aorta and visible portions of the visceral arteries are normal. The IVC is normal. The renal veins are normal. The hepatic veins are normal. Lymph nodes: There are mildly prominent upper retroperitoneal lymph nodes of unknown significance. No louie pathologic retroperitoneal, mesenteric or socar hepatis lymphadenopathy the is seen. Bones/joints: There is incompletely imaged lower lumbar fusion. Visible bones are otherwise unremarkable. Soft tissues: The visible portion of the abdominal wall is intact. MR/MR MRCP [id number] IMPRESSION: 1. No acute findings. 2. Cirrhotic morphology of the liver. No liver mass. 3. Moderate splenic enlargement.
[2024-06-28] MEDS: gadobenate dimeglumine 20 mL vial IV (13:33)
== END 2024-06-28 11:13 | disposition home or self-care (01) ==
LOC: RAD 11:13
PROVIDERS: PCP Family Medicine Adult Medicine; Visit Provider Internal Medicine Gastroenterology
DX: R10.9 Unspecified abdominal pain (principal); K74.3 Primary biliary cirrhosis; R16.1 Splenomegaly, not elsewhere classified; K74.60 Unspecified cirrhosis of liver
CPT/HCPCS: 74181; A9577

== ENCOUNTER → 2024-12-08 14:11 | Outpatient (BNVA) | payer MEDICARE, OTHER, SELFPAY | PROVIDERS: PCP Family Medicine Adult Medicine; Visit Provider Family Medicine | DX: R06.09 Other forms of dyspnea (principal); Z86.79 Personal history of other diseases of the circulatory system; I10 Essential (primary) hypertension; E03.8 Other specified hypothyroidism; K74.3 Primary biliary cirrhosis; E87.6 Hypokalemia | CPT/HCPCS: 80053; 83540; 83880; 84439; 84443; 85025 ==

== ENCOUNTER 2024-12-11 10:42 | Outpatient (CLI) | payer MEDICARE, OTHER, SELFPAY ==
--- NOTE | 2024-12-11 10:48 | XRR_ITS ---
PROCEDURE INFORMATION: Exam: XR Chest Exam date and time: 12/11/2024 10:53 AM Age: 74 years old Clinical indication: Shortness of breath; Additional info: Shortness of breath on exertion TECHNIQUE: Imaging protocol: Radiologic exam of the chest. Views: 2 views. COMPARISON: CT chest abdpel [id number] 06/22/2023 11:24 AM FINDINGS: Lungs: Unremarkable. No consolidation. Pleural spaces: Unremarkable. No pleural effusion. No pneumothorax. Heart/Mediastinum: Unremarkable. No cardiomegaly. Bones/joints: Unremarkable. XR/XR chest 2V* [id number] IMPRESSION: No acute findings.
== END 2024-12-11 10:43 | disposition home or self-care (01) ==
LOC: RAD 10:47
PROVIDERS: Family Provider Internal Medicine Cardiovascular Disease; PCP Family Medicine; Visit Provider Family Medicine
DX: R06.02 Shortness of breath (principal)
CPT/HCPCS: 71046

== ENCOUNTER 2025-01-08 08:54 | Outpatient (CLI) | payer MEDICARE, OTHER, SELFPAY ==
--- NOTE | 2025-01-08 09:04 | US_ITS ---
WS: [id number] ULTRASOUND ABDOMEN LIMITED CLINICAL INFORMATION: PRIMARY BILLIARY CIRRHOSIS COMPARISON: CT 05/01/2024 FINDINGS: Liver Size: Cirrhotic Craniocaudal length: 16.6 cm. Echogenicity: Coarse Surface nodularity: Nodular Mass (size and location): None. Bile ducts Intrahepatic ducts: Normal. Common bile duct diameter: 0.3 cm. Gallbladder Normal. Gallstones: None. Gallbladder sludge: None. Gallbladder wall thickening: None. Pericholecystic fluid: None. Sonographic Lopez sign: Absent. Pancreas Not well visualized Right kidney: Normal. Hydronephrosis: None. Size: 9.2 cm x 5.2 cm x 5.9 cm. Abdominal aorta and IVC Visualized portions are normal. Ascites: None. US/US abdomen limited [id number] IMPRESSION: 1. Coarse liver hepatic echogenicity with nodular contour compatible with cirr hosis similar to the prior studies. 2. Normal gallbladder. 3. No hydronephrosis in the RIGHT kidney.
[2025-01-08 09:42] LABS: Basophils % 0.5 %; Eosinophils # 0.1 10^3/uL (0.0-0.8); Lymphocytes # 1.3 10^3/uL (0.8-4.8); Mean Corpuscular HGB Conc 33.6 g/dL (30-55); Mean Corpuscular Volume 95.1 fl (82-101); Mean Platelet Volume 11.6 fL (7.4-10.4); Monocytes # 0.6 10^3/uL (0.2-0.9); Monocytes % 14.1 %; Neutrophils % 50.9 %; Nucleated Red Blood Cells % 0 %; Platelet Count 118 10^3/cmm (157-399); Red Cell Distribution Width 13.8 % (12.1-15.1); White Blood Count 4.32 10^3/uL (3.29-11.43)
[2025-01-08 09:52] LABS: INR 1.06 (0.8-1.2)
[2025-01-08 10:06] LABS: Tumor Marker Alpha Fetoprotein 2.5 ng/mL (0-8.3)
[2025-01-08 10:18] LABS: Alanine Aminotransferase 21 U/L (0-41); Albumin Level 3.5 g/dL (3.5-5.2); Alkaline Phosphatase 122 U/L (40-130); Anion Gap 11.1 (5-19); Aspartate Amino Transferase 25 U/L (0-40); Blood Urea Nitrogen 15 mg/dL (8-23); Calcium 8.7 mg/dL (8.5-10.5); Carbon Dioxide 23 mmol/L (22-29); Chloride 104 mmol/L (98-107); Globulin 4.1 g/dL (1.3-4.6); Glucose 110 mg/dL (65-115); Osmolality Calculated 279 mOsm/kg (285-295); Potassium 4.1 mmol/L (3.5-5.1); Sodium 134 mmol/L (136-145); Total Bilirubin 0.7 mg/dL (0.15-1.2); Total Protein 7.6 g/dL (6.6-8.7)
== END 2025-01-08 08:55 | disposition home or self-care (01) ==
PROVIDERS: PCP Family Medicine; Visit Provider Internal Medicine Gastroenterology
DX: K74.60 Unspecified cirrhosis of liver (principal); R93.2 Abnormal findings on diagnostic imaging of liver and biliary tract
CPT/HCPCS: 36415; 76705; 80053; 82105; 85025; 85610

== ENCOUNTER 2025-02-14 13:11 | Outpatient (CLI) | payer MEDICARE, OTHER, SELFPAY ==
--- NOTE | 2025-02-14 13:30 | USCV_ITS ---
Gabe Jimenez Age: 74 Gender: M : 1950 Exam Date: 02/14/2025 15:01 Ordering Phys: Emy Francisco MD Technologist: Exam Location: [facility] Indication: pre op BP: / HR: 78 Rhythm: Sinus Technical Quality: Adequate MEASUREMENTS (Male / Female) Normal Values 2D ECHO LV Diastolic Diameter PLAX 4.4 cm 4.2 - 5.9 / 3.9 - 5.3 cm IVS Diastolic Thickness 1.5 cm 0.6 - 1.0 / 0.6 - 0.9 cm IVS Systolic Thickness 1.7 cm LVPW Diastolic Thickness 1.4 cm 0.6 - 1.0 / 0.6 - 0.9 cm LVPW Systolic Thickness 1.6 cm LVOT Diameter 2.1 cm LV Ejection Fraction 2D Teich 66.5 % LV Ejection Fraction MOD 4C 51.1 % LV Ejection Fraction MOD 2C 73.4 % LV Ejection Fraction 2C AL 74.1 % LA Diameter 4.4 cm RA Systolic Volume 4C AL 60.3 ml RA Systolic Volume 4C MOD 60.6 ml Aorta at Sinotubular Diameter 2.4 cm IVC Diameter 2.2 cm M-MODE LA Ao Ratio MM 1.3 AV Cusp Separation MM 2.2 cm DOPPLER AV Peak Velocity 157.0 cm/s LVOT Peak Velocity 92.0 cm/s AV Area Cont Eq vti 2.4 cm squared AV Area Cont Eq pk 2.0 cm squared MV Peak Velocity 117.0 cm/s MV Area PHT 4.0 cm squared Mitral E to A Ratio 2.1 TV Peak Velocity 278.5 cm/s TR Peak Velocity 292.0 cm/s TR Peak Gradient 34.1 mmHg TV Peak E Velocity 122.0 cm/s PV Peak Velocity 79.0 cm/s FINDINGS Left Ventricle Mild left ventricular hypertrophy. Normal left ventricular size and systolic function, EF 73%. Right Ventricle The right ventricle is normal in size and function. Right Atrium Mildly increased right atrial size. Left Atrium Mildly increased left atrial size. Mitral Valve Thickened mitral valve. Mild mitral valve regurgitation. Aortic Valve Thickened aortic valve. Trace aortic valve regurgitation. Tricuspid Valve Mild tricuspid valve regurgitation. Estimated pulmonary artery peak systolic pressure 37 mmHg Pulmonic Valve Pulmonic valve not well visualized. Pericardium Normal pericardium without effusion. Aorta Normal aortic annulus size. IVC Normal inferior vena cava. CONCLUSIONS Normal left ventricular size and systolic function, EF 73%. Mild left ventricular hypertrophy. Mild biatrial enlargement. Thickened mitral valve. Mild mitral valve regurgitation. Thickened aortic valve. Trace aortic valve regurgitation. Mild tricuspid valve regurgitation. Estimated pulmonary artery peak systolic pressure 37 mmHg . There is no pericardial effusion. There are no intracardiac masses. Compared to the study from 06/22/2023, there may not be a significant change Dr Mei Melendez MD FAC (Electronically Signed) Final Date: 15 February 2025 22:27 S
== END 2025-02-14 13:12 | disposition home or self-care (01) ==
LOC: RAD 13:12
PROVIDERS: Absent Provider Internal Medicine Cardiovascular Disease; PCP Family Medicine; Visit Provider Family Medicine
DX: I08.3 Combined rheumatic disorders of mitral, aortic and tricuspid valves (principal); R06.09 Other forms of dyspnea; I10 Essential (primary) hypertension
CPT/HCPCS: 93306

== ENCOUNTER → 2025-02-19 09:49 | Outpatient (BNVA) | payer MEDICARE, OTHER, SELFPAY | PROVIDERS: PCP Family Medicine; Visit Provider Internal Medicine Cardiovascular Disease | DX: I10 Essential (primary) hypertension (principal); R06.09 Other forms of dyspnea; E03.8 Other specified hypothyroidism; K74.3 Primary biliary cirrhosis | CPT/HCPCS: 99214 ==

== ENCOUNTER 2025-02-23 11:38 | Emergency (ER) | payer MEDICARE, OTHER, SELFPAY ==
[2025-02-23 11:39] VITALS: BP 141/76; PULSE 81; RESP 17; TEMP 36.7; O2SAT 98; BMI 29.1
--- NOTE | 2025-02-23 11:41 | ECG_ITS ---
[facility] Test Date: 2025-02-23 Pat Name: Gabe Jimenez Department: Room: Gender: Male Investigative Assistant: : 1950 Requested By: Wes Dial Order Number: [id number] Abraham MD: Jaren White M.D. Measurements Intervals [place] Rate: 79 P: 60 AR: 159 QRS: 17 QRSD: 83 T: -21 QT: 371 QTc: 426 Interpretive Statements SINUS RHYTHM WITH FREQUENT VENTRICULAR PREMATURE COMPLEXES IN A BIGEMINAL PATTERN LOW QRS VOLTAGE IN EXTREMITY LEADS Compared to ECG 05/03/2024 15:25:54 Ventricular premature complex(es) now present Electronically Signed On 02-24-2025 13:24:29 CDT by Jaren White M.D. [email or web address] [id number]
--- NOTE | 2025-02-23 11:46 | CT_ITS ---
WS: [id number] CT CHEST ANGIOGRAPHY WITH REFORMATS HISTORY: Dyspnea on exertion postop day 1 knee surgery TECHNIQUE: Contiguous axial images are obtained through the chest during arterial injection of intravenous contrast. Images are reconstructed to evaluate the pulmonary arteries. MIP imaging also reviewed. All CT scans at [facility] use at least one of these dose optimization techniques: automated exposure control; mA and/or kV adjustment per patient size (includes targeted exams where dose is matched to clinical indication); or iterative reconstruction. CONTRAST: Omnipaque 350; 100 mL IV. DLP: 412.48 mGy.cm COMPARISON: 06/22/2023 Normal enhancement of the pulmonary artery. No pulmonary emboli. Normal size pulmonary artery. Mild atherosclerosis aorta with mild ectasia. Mild cardiomegaly. No pericardial effusion. Very tiny bilateral pleural effusions. Linear 7 mm nodule at the RIGHT lung apex unchanged since 10/23/2022. No pneumo georgette. Hilar lymph nodes are mildly enlarged. Largest lymph node is at the RIGHT hilum at 13.7 cm. Spleen is enlarged, similar to 06/22/2023. The entire spleen is not included on this CT of the chest. Mildly distended gallbladder. Cirrhotic liver. Mild edema seen in the pancreatic head and small lymph nodes. No hepatic mass. High density focus in the colon is probably medicinal tablet. Mild increase in thoracic kyphosis. CT/CT angio chest PE protcl [id number] IMPRESSION: 1. No pulmonary embolism. 2. Long-term stability 7 mm nodule RIGHT upper lobe. 3. Cirrhotic liver with a small amount of adjacent ascites and splenomegaly. 4. Mild edema surrounds the pancreatic head and a few small lymph nodes. Proba naomy related to patient's cirrhosis.
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
[2025-02-23 12:04] VITALS: BP 134/91; PULSE 79; O2SAT 98
--- NOTE | 2025-02-23 12:11 | XR_ITS ---
WS: [id number] Portable AP upright chest, 02/23/2025 Clinical Data: dyspnea/cough Comparison: PA and lateral chest, 12/11/2024 Findings: No nodules, masses or effusions are seen. The heart is normal. The pulmonary vascularity is not increased. No pneumonia or pneumothorax is seen. The aortic arch and descending thoracic aorta show mild tortuosity. The diaphragms are flattened. Monitor leads are on the chest wall. XR/XR chest 1V portable [id number] Impression: Hyperinflation and atherosclerosis.
--- NOTE | 2025-02-23 12:14 | PC.PHAR ---
patient was just seen and discharged at [facility], all his meds are in a bag with him plus has paperwork from [facility] discharge.
[2025-02-23 12:29] LABS: Basophils % 0.5 %; Eosinophils # 0.2 10^3/uL (0.0-0.8); Eosinophils % 2.6 %; Hematocrit 35.8 % (37-53); Lymphocytes # 1.6 10^3/uL (0.8-4.8); Mean Corpuscular HGB Conc 33.2 g/dL (30-55); Mean Corpuscular Hemoglobin 33.2 pg (27-33); Mean Platelet Volume 11.8 fL (7.4-10.4); Monocytes # 1.1 10^3/uL (0.2-0.9); Monocytes % 14.3 %; Neutrophils # 4.64 10^3/uL (1.8-7.7); Neutrophils % 61.1 %; Nucleated Red Blood Cells % 0 %; Platelet Count 96 10^3/cmm (157-399); Red Blood Count 3.58 10^6/uL (3.85-5.65); Red Cell Distribution Width 15.3 % (12.1-15.1); White Blood Count 7.61 10^3/uL (3.29-11.43)
[2025-02-23 12:52] LABS: Alanine Aminotransferase 15 U/L (0-41); Albumin Level 3.4 g/dL (3.5-5.2); Alkaline Phosphatase 115 U/L (40-130); Anion Gap 15.3 (5-19); Aspartate Amino Transferase 20 U/L (0-40); Blood Urea Nitrogen 23 mg/dL (8-23); Carbon Dioxide 21 mmol/L (22-29); Chloride 106 mmol/L (98-107); Creatinine Clr Calc Pharmacy 95.0764; Globulin 3.5 g/dL (1.3-4.6); Glucose 111 mg/dL (65-115); Osmolality Calculated 290 mOsm/kg (285-295); Potassium 4.3 mmol/L (3.5-5.1); Sodium 138 mmol/L (136-145); Total Bilirubin 0.7 mg/dL (0.15-1.2); Total Protein 6.9 g/dL (6.6-8.7); Troponin(5th) Baseline < 6 ng/L (0-15)
[2025-02-23 13:12] VITALS: BP 132/62; PULSE 75; RESP 24; O2SAT 96
[2025-02-23 13:17] VITALS: RESP 18; O2SAT 95
[2025-02-23] MEDS: morphine 4 mg/mL SDV 1 mL 2 MG IVP (13:17)
[2025-02-23] MEDS: prochlorperazine 10 mg/2 mL Inj IVP (13:17)
[2025-02-23 13:24] LABS: Bilirubin Urine Negative (Negative); Blood Urine Negative (Negative); Glucose Urine UA Negative (Normal); Ketones Urine Negative (Negative); Leukocyte Esterase Urine Negative (Negative); Nitrate Urine Negative (Negative); Protein Urine Negative (Negative); Specific Gravity, Urine 1.008 (1.005-1.030); Urine Appearance Clear (CLEAR); Urine Color Yellow (Yellow); Urobilinogen Urine 0.2 mg/dL (Negative)
[2025-02-23 13:29] LABS: Add Urine Microscopic? YES; Bacteria Urine None Seen /hpf; RBC Urine 0-2 /hpf (0-2); Squamous Epithelial Cell Urine 0-5 /hpf (0-5); WBC Urine 0-5 /hpf (0-5)
[2025-02-23] MEDS: iohexol 350 mg/mL 500 mL Btl (per mL) IV (13:49)
--- NOTE | 2025-02-23 13:57 | ECG_ITS ---
[facility]23 Pat Name: Gabe Jimenez Department: Room: Gender: Male Beauty Consultant: : [id number] Requested By: Wes Dial Order Number: [id number] Abraham MD: Jaren White M.D. Measurements Intervals [place] Rate: 76 P: 129 IA: 177 QRS: 18 QRSD: 84 T: 60 QT: 404 QTc: 457 Interpretive Statements SINUS RHYTHM WITH FREQUENT VENTRICULAR PREMATURE COMPLEXES IN A BIGEMINAL PATTERN LOW QRS VOLTAGE IN EXTREMITY LEADS [QRS DEFLECTION < 0.5 mV IN LIMB LEADS] MINIMAL ST DEPRESSION [0.025+ mV ST DEPRESSION] ABNORMAL RHYTHM ECG Compared to ECG 02/23/2025 11:41:32 ST (T wave) deviation now present Electronically Signed On 02-24-2025 13:36:43 CDT by Jaren White M.D. [email or web address]
[2025-02-23 14:04] VITALS: BP 117/74; PULSE 93; O2SAT 97
[2025-02-23 14:23] LABS: Troponin 5 2HR Delta 0.00001 ABS# (0-10)
[2025-02-23 15:09] VITALS: BP 162/72; PULSE 78; O2SAT 96
== END 2025-02-23 15:18 | disposition home or self-care (01) ==
PROVIDERS: Emergency Provider Family Medicine; PCP Family Medicine
DX: R07.89 Other chest pain (principal); K74.3 Primary biliary cirrhosis; I10 Essential (primary) hypertension; Z79.82 Long term (current) use of aspirin
CPT/HCPCS: 36415; 71045; 71275; 80053; 81001; 84484; 85025; 93005; 96374; 96375; 99285; J0780; J2270

== ENCOUNTER → 2025-06-14 10:13 | Outpatient (BNVA) | payer MEDICARE, OTHER, SELFPAY | PROVIDERS: PCP Family Medicine; Visit Provider Family Medicine | DX: Z11.59 Encounter for screening for other viral diseases (principal); E03.8 Other specified hypothyroidism; Z13.6 Encounter for screening for cardiovascular disorders | CPT/HCPCS: 80061; 84439; 86803 ==

== ENCOUNTER 2025-08-08 09:13 | Outpatient (CLI) | payer MEDICARE, OTHER, SELFPAY ==
--- NOTE | 2025-08-08 09:20 | US_ITS ---
WS: [id number] ABDOMINAL ULTRASOUND LIMITED REASON FOR VISIT: PRIMARY BILIARY CIRRHOSIS TECHNIQUE: Grayscale and Doppler ultrasound examination of the abdomen. FINDINGS: Pancreas: Not visualized due to overlying bowel gas. Abdominal aorta and IVC: Normal Liver: Liver measures 14.5 cm in length. Inhomogeneously increased echotexture with nodular surface. No focal lesions. Normal portal venous flow. No dilated intrahepatic radicles. Gallbladder: Gallbladder wall thickness measures 0.2 mm. No gallbladder calculi. Normal common bile duct. Right kidney: Right kidney measures 9.8 cm x 6.6 cm x 6.3 cm. Right kidney cortex measures 1.2 cm. No hydronephrosis, mass, or calculus. No ascites. US/US abdomen limited [id number] IMPRESSION: Echogenic nodular liver which appears unchanged compared to the previous ultras ound examination 01/08/2025. Remainder the examination was unremarkable.
== END 2025-08-08 09:14 | disposition home or self-care (01) ==
LOC: RAD 09:14
PROVIDERS: PCP Family Medicine; Visit Provider Internal Medicine Gastroenterology
DX: K74.3 Primary biliary cirrhosis (principal); R93.2 Abnormal findings on diagnostic imaging of liver and biliary tract
CPT/HCPCS: 76705